=== PATIENT | female | born 1960 | race Caucasian/White ===

== ENCOUNTER → 2016-07-22 | Outpatient (CLI) | payer OTHER | LOC: RAD 11:57 | DX: M25.511 Pain in right shoulder (principal) | CPT/HCPCS: 73030 ==

== ENCOUNTER 2021-03-22 11:58 | Emergency (ER) | payer OTHER ==
[~2021-03-22] VITALS: Ht 175.3 cm; Wt 116.1 kg
== END 2021-03-22 15:25 | disposition home or self-care (01) ==
LOC: ER1 11:58
DX: U07.1 COVID-19 (principal); Z23 Encounter for immunization; Z86.718 Personal history of other venous thrombosis and embolism
CPT/HCPCS: 71045; 99284; M0245

== ENCOUNTER 2021-03-24 11:42 | Emergency (ER) | payer OTHER | END 2021-03-24 17:32 | disposition home or self-care (01) | LOC: ER1 11:42 | DX: U07.1 COVID-19 (principal); J12.82 Pneumonia due to coronavirus disease 2019 | CPT/HCPCS: 71045; 96374; 99283; J2405 ==